=== PATIENT | female | born 1995 | race Caucasian/White ===

== ENCOUNTER 2017-10-23 14:17 | Emergency (ER) | payer BC ==
[~2017-10-23] VITALS: Ht 160 cm; Wt 108.6 kg
[2017-10-23 14:25] VITALS: BP 120/76
--- NOTE | 2017-10-23 14:30 | NUR ---
PT AMBULATES TO BED 1
--- NOTE | 2017-10-23 14:36 | NUR ---
21/F PRESENT TO ER C/O SORE THROAT X 2 DAYS WITH DIFFICULTY/PAINFUL WHEN SWALLOWING. PT DENIES COUGH OR COLD S/SX. AAOx4, PERRLA, BREATHING EVEN AND UNABORED. ERMD NOTIFIED OF PATIENT STATUS.
--- NOTE | 2017-10-23 14:50 | NUR ---
Patient being evaluated by physician at bedside.
--- NOTE | 2017-10-23 15:23 | NUR ---
Patient discharged with v/s stable. Written and verbal after care instructions given and explained. Patient alert, oriented and verbalized understanding of instructions. Ambulatory with steady gait. All questions addressed prior to discharge. ID band removed. Patient advised to follow up with PMD. Rx of AZITHROMYCIN 500MG TABLET, PREDNISONE 20MG AND MOTRIN 600MG given. Patient educated on indication of medication including possible reaction and side effects. Opportunity to ask questions provided and answered.
[2017-10-23 15:24] VITALS: BP 126/68
== END 2017-10-23 15:23 | disposition home or self-care (01) ==
LOC: MED 14:17
DX: J02.9 Acute pharyngitis, unspecified (principal)
CPT/HCPCS: 99283

== ENCOUNTER 2017-11-02 08:50 | Emergency (ER) | payer BC ==
[~2017-11-02] VITALS: Ht 160 cm; Wt 108.6 kg
[2017-11-02 08:55] VITALS: BP 120/71
--- NOTE | 2017-11-02 08:57 | NUR ---
PT AMBULATES TO BED 7, REPORT GIVEN TO TOMMY SCHROEDER
[2017-11-02] MEDS ORDERED: KETOROLAC 60 MG/2 ML VIAL IM ONE (09:10)
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
[2017-11-02 10:30] VITALS: BP 117/72
== END 2017-11-02 10:30 | disposition home or self-care (01) ==
LOC: MED 08:50
DX: S61.011A Laceration without foreign body of right thumb without damage to nail, initial encounter (principal); W23.0XXA Caught, crushed, jammed, or pinched between moving objects, initial encounter; Y93.89 Activity, other specified; Y99.8 Other external cause status; Y92.89 Other specified places as the place of occurrence of the external cause
CPT/HCPCS: 73140; 96372; 99284; J1885